=== PATIENT | male | born 1945 | race Caucasian/White ===

== ENCOUNTER 2017-01-02 10:48 | Emergency (ER) | payer MEDICARE ==
[~2017-01-02] VITALS: Ht 182.9 cm; Wt 104.0 kg
[2017-01-02 11:03] VITALS: BP 136/83; PULSE 65; RESP 16; TEMP 97; O2SAT 96
[2017-01-02] MEDS ORDERED: LISI-519 PO (11:57)
--- NOTE | 2017-01-02 13:15 | PD ---
HPI Chief Complaint: Laceration/Skin Injury Time Seen by Provider: 12:43 Travel History International Travel<30 days: No Contact w/Intl Traveler<30days: No Traveled to known affect area: No History of Present Illness HPI 71-year-old male here for evaluation of left thumb laceration caused by a box strapper. Injury occurred prior to arrival. Bleeding is well-controlled. Patient has mild pain at the site of the laceration. He has full range of motion and normal sensation within the digit. Symptom severity is mild. No alleviating factors. PFSH Social History Tobacco Use: No Allergies-Medications (Allergen,Severity, Reaction): Coded Allergies: No Known Allergies (Unverified , 01/02/17) Reported Meds & Prescriptions Reported Meds & Active Scripts Active Reported Lisinopril 5 Mg Tab 5 Mg PO DAILY Review of Systems Except as stated in HPI: all other systems reviewed are Neg Physical Exam Narrative GENERAL: Well-nourished, well-developed patient. SKIN: Focused skin assessment warm/dry. 1 cm laceration to the distal aspect of the left thumb near the nail fold. Bleeding well controlled. HEAD: Normocephalic. EYES: No scleral icterus. No injection or drainage. NECK: Supple, trachea midline. No JVD or lymphadenopathy. CARDIOVASCULAR: Regular rate and rhythm without murmurs, gallops, or rubs. RESPIRATORY: Breath sounds equal bilaterally. No accessory muscle use. GASTROINTESTINAL: Abdomen soft, non-tender, nondistended. MUSCULOSKELETAL: No cyanosis, or edema. Left thumb: 1 cm laceration to the distal aspect of the left thumb near the nail fold. Bleeding well controlled. Data Data Last Documented VS Vital Signs Date Time Temp Pulse Resp B/P (MAP) Pulse Ox O2 Delivery O2 Flow Rate FiO2 01/02/17 11:03 97.0 65 16 136/83 (100) 96 Orders Orders Lidocaine 1% Inj (50 Ml) (Xylocaine 1% I (01/02/17 13:30) [facility] Medical Decision Making Medical Screen Exam Complete: Yes Emergency Medical Condition: Yes Differential Diagnosis Finger laceration, tendon laceration, abrasion Narrative Course 71-year-old male here with a 1 cm laceration to the distal aspect of the left thumb. Bleeding well controlled. No neurovascular injury. Patient has full range of motion normal sensation of the digit. Laceration repair performed. Patient tolerated procedure well. Instructed to follow up with his primary doctor for recheck. Procedures Procedure Narrative LACERATION LOCATION: Left thumb LENGTH: Centimeters NUMBER OF STITCHES/SOPHIE: 1 REPAIR: The area of the laceration was prepped with Betadine and sterilely draped. The laceration was infiltrated with 1% lidocaine. The wound was copiously irrigated and explored without evidence of foreign body, tendon injury or neurovascular injury. The wound was closed using 4-0 Ethilon. This was a single layer repair. A sterile dressing was applied. The patient was advised to keep the dressing clean and dry. Patient tolerated the procedure well. Diagnosis Primary Impression: Laceration of left thumb Qualified Codes: S61.012A - Laceration without foreign body of left thumb without damage to nail, initial encounter Referrals: Primary Care Physician Additional Instructions: Do not submerge the wound in water. You may begin cleansing the wound with soap and water tomorrow. Sutures need to be removed in 7-10 days. Follow-up with her primary doctor Disposition: 01 DISCHARGE HOME Condition: Stable Roberta Young Jan 02, 2017 13:15
[2017-01-02] MEDS ORDERED: LIDOCAINE HCL 1% 50 ML VIAL INFIL ONE (13:30)
[2017-01-02] MEDS ORDERED: TETANUS/DIPHTHERIA TOXOID ADULT 0.5 ML VIAL IM ONE (13:45)
== END 2017-01-02 14:05 | disposition home or self-care (01) ==
LOC: PHED 10:48 → PHEFT 14:05
DX: S61.012A Laceration without foreign body of left thumb without damage to nail, initial encounter (principal); Z23 Encounter for immunization; W27.8XXA Contact with other nonpowered hand tool, initial encounter
CPT/HCPCS: 12001; 90471; 90714